=== PATIENT | female | born 1985 | race Caucasian/White ===

== ENCOUNTER 2019-07-13 21:14 | Emergency (ER) | payer OTHER ==
[~2019-07-13] VITALS: Ht 167.6 cm; Wt 61.4 kg
[~2019-07-13 21:14] MED LIST: BIRTH CONTROL; NAPROSYN375 MG PO
[2019-07-13 21:36] VITALS: TEMP 98.1
[2019-07-13] MEDS ORDERED: SINGULAIR 110 MG/TAB PO (22:51)
[2019-07-13 23:23] LABS: BASO % 0.4 % (0.0-2.0); EOS % 0.3 % (0-4.0); GRAN # 9.5 (1.4-6.5); GRAN % 84.9 % (42.2-75.2); HEMATOCRIT 40.2 % (37.0-47.0); HEMOGLOBIN 13.7 g/dl (12.5-16.0); LYMPH # 1.1 (1.2-3.4); LYMPH % 10.2 % (20.0-51.0); MEAN CELL VOLUME 88 fl (80.0-100.0); MEAN CORPUSCULAR HEMOGLOBIN 30 pg (27.0-31.0); MEAN CORPUSCULAR HGB CONC 34 g/dl (33.0-37.0); MEAN PLATELET VOLUME 10.4 fl (7.4-10.4); MONO # 0.4 (0.1-0.6); MONO % 3.9 % (1.7-9.3); PLATELET COUNT 210 K/mm3 (130-400); RED BLOOD COUNT 4.55 M/mm3 (4.10-5.30)
[2019-07-13 23:32] LABS: ALANINE AMINOTRANSFERASE 25 U/L (9-52); ALBUMIN 4.9 gm/dL (3.5-5.0); ALKALINE PHOSPHATASE 78 U/L (50-136); ANION GAP 11 mmol/L (7-16); AST,SGOT 35 U/L (15-37); BILIRUBIN,TOTAL 0.6 mg/dL (0.0-1.0); BLOOD UREA NITROGEN 14 mg/dL (7-17); CALCIUM 9.9 mg/dL (8.4-10.2); CARBON DIOXIDE 24 mmol/L (22-30); CHLORIDE 105 mmol/L (98-107); CREATININE, serum 0.55 (0.52-1.25); GLUCOSE 132 mg/dL (74-106); POTASSIUM 3.9 mmol/L (3.4-5.0); SODIUM 140 mmol/L (137-145); TOTAL PROTEIN 8.8 gm/dL (6.4-8.2)
[2019-07-13] MEDS ORDERED: ANTIVERT 25MG25 MG PO (23:49)
[2019-07-14 00:08] LABS: C-REACTIVE PROTEIN < 0.5 mg/dL (0.0-0.9)
[2019-07-14 00:20] VITALS: BP 132/81; PULSE 94
== END 2019-07-14 00:20 | disposition home or self-care (01) ==
LOC: COL.ER 21:14
PROVIDERS: Physician Assistant
DX: R42 Dizziness and giddiness (principal)